=== PATIENT | female | born 1985 | race African-American/Black ===

== ENCOUNTER 2024-09-30 17:20 | Emergency (ER) | payer OTHER, SELFPAY ==
[2024-09-30 17:22] VITALS: BP 187/101
[2024-09-30 17:44] LABS: % Basophils 0.8 % (0-2); % Eosinophils 2.1 % (0-6); % Immature Granulocytes 0.2 % (0-0.5); % Lymphocytes 39.1 % (20.5-51.1); % Monocytes 8.1 % (1.7-9.3); % Neutrophils 49.7 % (42.2-75.2); Absolute Basophils 0.1 10^3/uL (0-0.2); Absolute Eosinophils 0.2 10^3/uL (0-0.7); Absolute Lymphocytes 3.5 10^3/uL (1.2-3.4); Absolute Monocytes 0.7 10^3/uL (0.1-0.6); Absolute Neutrophils 4.5 10^3/uL (1.4-6.5); Hematocrit 33.4 % (37.0-47.0); Hemoglobin 11.5 g/dL (12.0-16.0); Mean Corp Hgb Conc. 34.4 g/dL (33.0-37.0); Mean Corpuscular Hgb 27.8 pg (27.0-31.0); Mean Corpuscular Volume 80.7 fL (81.0-99.0); Mean Platelet Volume 11.4 fL (7.4-10.4); Nucleated Red Blood Cells % 0 %; Platelet Count 217 10^3/uL (130-400); Red Blood Cell Count 4.14 10^6/uL (4.20-5.40); Red Cell Dist. Width 15.4 % (11.5-14.5); White Blood Cell Count 9.1 10^3/uL (4.8-10.8)
[2024-09-30 17:57] LABS: ALT (SGPT) 12 U/L (0-35); AST (SGOT) 15 U/L (14-36); Albumin 4.4 g/dl (3.5-5.0); Alkaline Phosphatase 54 U/L (38-126); Blood Urea Nitrogen 5 mg/dl (7-17); Calcium 9.2 mg/dl (8.4-10.2); Carbon Dioxide 24 mmol/L (22-30); Chloride 102 mmol/L (98-107); Glucose 91 mg/dl (70-99); Potassium 3.6 mmol/L (3.5-5.1); Sodium 137 mmol/L (135-145); Total Bilirubin 0.5 mg/dl (0.2-1.3); Total Protein 7.1 g/dl (6.3-8.2); eGFR > 60.00
[2024-09-30 18:02] LABS: Urine Albumin Trace (Neg - Trace); Urine Bilirubin Negative (Negative); Urine Character Clear (Clear); Urine Color Yellow; Urine Glucose Negative (Negative); Urine Ketone Negative (Negative); Urine Leukocyte 1+ (Negative); Urine Nitrite Negative (Negative); Urine Occult Blood Negative (Negative); Urine Urobilinogen 1+ (Neg - 1+)
[2024-09-30 18:10] LABS: Urine Mucus Many
[2024-09-30 18:11] LABS: Urine Bacteria Many (Negative); Urine Red Blood Cell 0-2 /HPF (0-2)
[2024-09-30 19:05] VITALS: BP 161/91
--- NOTE | 2024-09-30 20:17 | ED.GENMED ---
Addendum entered and electronically signed by YUSUF Swenson 10/03/24 07:24:
Patient's urine found to be positive for Citrobacter species. Patient also . I did speak with patient at home she complains of mild discomfort with urination no fevers no nausea vomiting. She is supposed see her family doctor/[employer]. Will
send a prescription for Keflex 500 mg twice daily the patient [facility] pharmacy in [place]. Discussed close outpatient follow-up and to return if any worsening of symptoms.
Addendum entered and electronically signed by Negrita Harris PA-C 10/02/24 13:35:
Patient called and updated on culture results. Antibiotics sent to the pharmacy. Return precautions discussed.
Original Note:
History of Present Illness
General
Chief Complaint: Blood Pressure Problem
Source: patient
Exam Limitations: none
Time Seen by Provider: 09/30/24 19:01
Nursing documentation reviewed up to this point in time: agreed with
History of Present Illness
History of Present Illness:
39 yo female w hx seizures on Keppra, Hypothyroid on Synthroid and takes them both as ordered. She was taking HCTZ 25 mg up until 2 weeks ago when she ran out. She gotHCTZ from her doctor in [facility] who she says retired and she is in process of moving
her doctor to this area but has no PCP or OB yet.
She has no abdominal pain, no vaginal bleeding or discharge. Want to know how far along she is. She states her periods are irregular and she's been having them intermittently, not sure when last.
She denies H/A, CP, n/v. She felt 'palpitations' last night so took her BP at home and states the top number was 200/
had Ectopic x2 and 3 abortions.
Past History
Past History
ED Past Medical History: Other (Seizure disorder, hypertension, anxiety, PTSD) and Other
ED Past Surgical History: None; Negative Orthopedic
Social History
Tobacco: Smoker
Alcohol: None
Drug: None
Personal: Other (Noncontributory)
Living: with family
Employment: Employed
Family History
Family History: Other (Noncontributory)
Review of Systems
Review of Systems
Allergies reviewed?: Yes
All Other Systems: ROS reviewed and negative except as documented in HPI and ROS
Constitutional: Denies fever
Respiratory: Denies trouble breathing
Cardiac: Denies chest pain
ABD/GI: Denies abdominal pain, nausea, vomiting or diarrhea
: Denies dysuria, frequency, difficulty voiding, urgency, bleeding or discharge
Musculoskeletal: Reports no symptoms
Skin: Reports no symptoms
Neurological: Reports no symptoms
Phy Exam
Physical Exam
Physical Exam:
GENERAL: No acute distress. A&Ox3.
CONSTITUTIONAL: Afebrile.
EYES: clear, conjunctivae normal
ENMT: moist mucus membranes
RESPIRATORY: Regular respirations, nonlabored, lungs clear.
CARDIOVASCULAR: Regular rate and rhythm, no murmurs, no rubs.
GI: Soft, nontender, normal BS, rotund
MUSCULOSKELETAL: Moves with ease. Well perfused.
SKIN: Warm, dry, normal
PSYCH: Normal mood and affect. Well kept, interactive and appropriate
NEUROLOGIC: Awake, alert and oriented. No focal neurological deficits
Course
Orders/Labs/Results
Orders:
Orders
09/30/24 17:37
CBC/With Diff [Complete Blood Count/With Diff] Urgent
Comprehensive Metabolic Panel Urgent
HCG, Beta Quantitative [Beta HCG Quantitative] Urgent
Is this a screen?: No
Urinalysis Reflex To Culture Urgent
Date Specimen was Collected: 09/30/24
Time Specimen was Collected: 17:27
Urine Microscopic Reflex Cult Urgent
Urine Culture Urgent
LENNY Source: U
Specimen Description:
Date Specimen was Collected: 09/30/24
Time Specimen was Collected: 17:27
09/30/24 20:14
Hydrochlorothiazide [Oretic] 25 mg PO NOW STA
09/30/24 20:16
US Limited Urgent
Comment:
Reason For Exam: pt w HTN, seizure, doesn't know how far
09/30/24 20:40
Acetaminophen [Tylenol] 650 mg PO NOW STA
09/30/24 21:32
Clonazepam [Klonopin] 1 mg PO NOW STA
09/30/24 21:39
Quetiapine Fumarate [Seroquel] 300 mg PO NOW STA
Abnormal Lab Results
09/30/24
17:37
RBC 4.14 L 10^6/uL
(4.20-5.40)
Hgb 11.5 L g/dL
(12.0-16.0)
Hct 33.4 L %
(37.0-47.0)
MCV 80.7 L fL
(81.0-99.0)
RDW 15.4 H %
(11.5-14.5)
MPV 11.4 H fL
(7.4-10.4)
Absolute Lymphs (auto) 3.5 H 10^3/uL
(1.2-3.4)
Absolute Monos (auto) 0.7 H 10^3/uL
(0.1-0.6)
BUN 5 L mg/dl
(7-17)
Leukocyte Esterase Rfl 1+ A
(Negative)
Urine Bacteria (Reflex) Many A
(Negative)
09/30/24 17:37
09/30/24 17:37
Vital Signs
Initial and Last Documented VS:
Initial Vital Signs
Temp Pulse Resp BP Pulse Ox
98 F 85 16 187/101 98
09/30/24 17:22 09/30/24 17:22 09/30/24 17:22 09/30/24 17:22 09/30/24 17:22
Last Documented Vital Signs
Temp Pulse Resp BP Pulse Ox
98 F 81 18 161/91 99
09/30/24 17:22 09/30/24 20:35 09/30/24 19:05 09/30/24 20:35 09/30/24 19:05
MDM/Problems Addressed
MDM/Problems Addressed:
39 yo female w hx seizures on Keppra, Hypothyroid on Synthroid and takes them both as ordered. She was taking HCTZ 25 mg up until 2 weeks ago when she ran out. She gotHCTZ from her doctor in [facility] who she says retired and she is in process of moving
her doctor to this area but has no PCP or OB yet.
She has no abdominal pain, no vaginal bleeding or discharge. Want to know how far along she is. She states her periods are irregular and she's been having them intermittently, not sure when last.
She denies H/A, CP, n/v. She felt 'palpitations' last night so took her BP at home and states the top number was 200/
had Ectopic x2 and 3 abortions.
CBC with no clinically significant abnormality
CMP normal
hCG 51262.00M IU/mL
Patient is requesting an ultrasound to see how far along she is as she does not want to keep the baby
9:30 PM:
Patient is asking who can provide her with her p.m. medications of clonazepam 1 mg and Seroquel 300 mg this was done.
Patient is requesting Tylenol for headache. This was given
Patient is requesting a meal. This was given
11:20 p.m.
US: Radiology report read: IMPRESSION:
Single, viable intrauterine with estimated gestational age of 7 weeks 6 days. heart rate: 155 bpm.
3.3 cm cyst within the left ovary.
Copy of report given to patient
Pt is stable for discharge
BP normalized 126/64
Referred to [facility]
*Critical Care Note
Total Time (30-74mins, 75-104mins- exclusive of procedures): Not Applicable
ED Attending Note
-
Portions of this chart may have been created with voice recognition software.� Occasional wrong word or��sound alike� substitutions may have occurred due to the inherent limitations of voice recognition software.
Discharge Plan
Departure
Patient Disposition: Home (Routine Discharge)
Date of Disposition: 09/30/24
Time of Disposition: 23:27
Patient with high blood pressure during this ER visit?: No
Condition: Good
Discharge Problem:
, High blood pressure
Instructions: High Blood Pressure (DC), - The Second Month
Prescriptions:
New
hydrochlorothiazide 25 mg tablet
25 mg PO DAILY Qty: 30 0RF
No Action
Klonopin:
1 tab PO PRN PRN (Reason: anxiety)
Patient Comments:
08/23/2021: Per PDMP, No Klonopin filled, checked back to 2014.
ibuprofen 600 MG tablet
600 mg PO Q4HPRN PRN (Reason: pain)
levetiracetam 500 MG tablet
500 mg PO BID Qty: 30 0RF
lorazepam 1 MG tablet
1 mg PO Q8HPRN PRN (Reason: anxiety) Qty: 15 0RF
Referrals:
Kamar Delaney MD [Family Provider] -
Scarlet Bassett DO [Active] - Next open appointment
Activity Restrictions/Additional Instructions:
As we discussed, take the blood pressure medication HCTZ daily.
You are 7 weeks 6 days .
I have given you the name of an [facility] doctor to use
Interventions
Interventions:
*Risk Screen - Suicide Last Done: 09/30/24 17:22
*General Assessment Last Done: 09/30/24 17:22
*Neglect/Abuse Screening Last Done: 09/30/24 17:22
*ED COVID-19 Vaccine History Last Done: 09/30/24 18:45
ED- Cardiac Assessment Last Done: 09/30/24 18:45
ED- Neurological Assessment Last Done: 09/30/24 18:45
ED- Pulmonary Assessment Last Done: 09/30/24 18:45
Discharge Date and Time
Print Language: THAI
[2024-09-30] MEDS: ORETIC 25 MG PO (20:35)
[2024-09-30] MEDS: TYLENOL 650 MG PO (20:51)
[2024-09-30] MEDS: KLONOPIN 1 MG PO (21:47)
[2024-09-30] MEDS: SEROQUEL 300 MG PO (21:47)
[2024-09-30 22:58] VITALS: BP 137/72
[2024-09-30 23:00] VITALS: BP 126/74
[2024-09-30 23:57] VITALS: BP 126/71
== END 2024-09-30 23:58 | disposition home or self-care (01) ==
LOC: EMR 17:20
PROVIDERS: Emergency Medicine; EMERGENCY PHYSICIAN Emergency Medicine; FAMILY PHYSICIAN Internal Medicine
DX: O10.911 Unspecified pre-existing hypertension complicating pregnancy, first trimester (principal); O99.351 Diseases of the nervous system complicating pregnancy, first trimester; G40.909 Epilepsy, unspecified, not intractable, without status epilepticus; Z3A.01 Less than 8 weeks gestation of pregnancy; E03.9 Hypothyroidism, unspecified; F41.9 Anxiety disorder, unspecified; F43.10 Post-traumatic stress disorder, unspecified; F17.200 Nicotine dependence, unspecified, uncomplicated; Z79.890 Hormone replacement therapy
CPT/HCPCS: 99284; 76815; 80053; 81003; 81015; 84702; 85025; 87077; 87086; 87186

== ENCOUNTER 2024-11-11 20:02 | Emergency (ER) | payer OTHER, SELFPAY ==
--- NOTE | 2024-11-11 20:03 | ED.GENMED ---
ED Provider Triage
<Zoila Hunt PA-C - Last Filed: 11/11/24 20:12>
-
Patient seen by provider in Triage?: Seen in Triage
Attestation: A medical screening examination has been initiated by a qualified medical provider. Based on the assessment performed at this time, it has been determined that an emergent medical condition may exist and the patient has been informed
that further medical evaluation and possible additional diagnostic testing may be needed.
HPI: 39yoF went to urgent care for high blood pressure after being out of her HCTZ for 1 week. C/o R sided chest pain since yesterday, currently minimal. Hx of medical about 1 month ago at 10 weeks .
GENERAL: Alert , in no apparent distress
EYE: No visual abnormalities.
NECK: Trachea midline
ENT: No visible abnormalities.
LUNGS: No acute respiratory distress
NEUROLOGICAL: Alert and oriented
SKIN: Skin intact. No visible changes.
MUSCULOSKELETAL: Moving extremities normally
PSYCH: Normal and appropriate interaction.
This is a medical evaluation conducted in person to initiate diagnostic evaluation and provide initial therapeutics. Please see further documentation by the treating clinician.
Cardiac labs, HCG, EKG, and CXR ordered.
History of Present Illness
<Zoila Hunt PA-C - Last Filed: 11/11/24 20:12>
General
Chief Complaint: Cardiac Symptoms
Time Seen by Provider: 11/11/24 20:55
<Melvin Chamberlain Jr., PA-C - Last Filed: 11/12/24 00:32>
General
Source: patient and spouse
Exam Limitations: none
Nursing documentation reviewed up to this point in time: agreed with
History of Present Illness
History of Present Illness:
The patient is a 39-year-old female past medical history of anxiety, asthma, seizure disorder presenting to the emergency department today with concerns of chest pain described as achy rating to the right arm also noticed increased blood pressure
does take blood pressure medications no recent changes also recently had an elective 1 month ago did initially have bleeding the bleeding has improved today with worsening chest pain that prompted her to come to the ER. Also noticed leg
swelling mainly to the right leg small amount to the left leg. No ongoing chest pain at rest no shortness of breath at rest no fevers or abdominal pain.
Past History
<Zoila Hunt PA-C - Last Filed: 11/11/24 20:12>
Past History
ED Past Medical History: Other (Seizure disorder, hypertension, anxiety, PTSD) and Other
ED Past Surgical History: None; Negative Orthopedic
Social History
Tobacco: Smoker
Alcohol: None
Drug: None
Personal: Other (Noncontributory)
Living: with family
Employment: Employed
Family History
Family History: Other (Noncontributory)
Review of Systems
<Melvin Chamberlain Jr., PA-C - Last Filed: 11/12/24 00:32>
Review of Systems
Allergies reviewed?: Yes
All Other Systems: ROS reviewed and negative except as documented in HPI and ROS
Phy Exam
<Melvin Chamberlain Jr., PA-C - Last Filed: 11/12/24 00:32>
Physical Exam
Physical Exam:
GENERAL: Alert , in no apparent distress
EYE: pupils equal and reactive
NECK: Supple, no significant adenopathy.
ENT: o/p clr, mmm.
CARDIAC: Regular rate and rhythm .
LUNGS: Clear breath sounds bilaterally, no acute respiratory distress, no wheezes/rales/rhonchi
ABDOMEN: Soft, without focal tenderness, no r/g, no cvat
NEUROLOGICAL: Alert and oriented, no focal neuro deficits
SKIN: Warm and dry, skin intact.
MUSCULOSKELETAL: No edema, well perfused.
PSYCH: Normal and appropriate interaction.
Course
<Zoila Hunt PA-C - Last Filed: 11/11/24 20:12>
Orders/Labs/Results
Orders:
Orders
11/11/24 20:06
Electrocardiogram (*1) Urgent
Reason for Study: Chest Pain
EKG- Treatment ONCE
11/11/24 20:11
CR Chest - 2 Views Urgent
Comment:
Reason For Exam: CP
11/11/24 20:16
Beta HCG Quantitative Urgent
Is this a screen?: No
Complete Blood Count/With Diff Urgent
Comprehensive Metabolic Panel Urgent
Troponin I Urgent
11/11/24 21:19
CT Chest Pe Study Urgent
Comment:
Reason For Exam: CP/SOB, recent bed rest, leg swelling, recent abor
Levetiracetam [Keppra] 500 mg PO NOW STA
11/11/24 21:56
BNP [NT-proBNP] Urgent
11/11/24 22:49
Clonazepam [Klonopin] 1 mg PO NOW STA
Quetiapine Fumarate [Seroquel] 300 mg PO NOW STA
11/11/24 23:32
Add On- LAB Urgent
Tests Added?: tsh free t4
11/11/24 23:35
Hydrochlorothiazide [Oretic] 50 mg PO NOW STA
11/11/24 23:36
Methimazole [Tapazole] 5 mg PO NOW STA
Propranolol [Inderal] 20 mg PO NOW STA
Abnormal Lab Results
11/11/24
20:16
RBC 3.55 L 10^6/uL
(4.20-5.40)
Hgb 9.8 L g/dL
(12.0-16.0)
Hct 31.0 L %
(37.0-47.0)
MCHC 31.6 L g/dL
(33.0-37.0)
RDW 15.5 H %
(11.5-14.5)
MPV 10.9 H fL
(7.4-10.4)
Eosinophils % 6.1 H %
(0-6)
Glucose 106 H mg/dl
(70-99)
Calcium 8.1 L mg/dl
(8.4-10.2)
Total Protein 6.2 L g/dl
(6.3-8.2)
11/11/24 20:16
11/11/24 20:16
Vital Signs
Initial and Last Documented VS:
Initial Vital Signs
Temp Pulse Resp BP Pulse Ox
98.1 F 60 16 187/103 98
11/11/24 20:05 11/11/24 20:05 11/11/24 20:05 11/11/24 20:05 11/11/24 20:05
Last Documented Vital Signs
Temp Pulse Resp BP Pulse Ox
98.1 F 82 24 135/82 99
11/11/24 20:05 11/12/24 00:03 11/12/24 00:03 11/12/24 00:03 11/12/24 00:03
<Melvin Chamberlain Jr., FRANCIS - Last Filed: 11/12/24 00:32>
Orders/Labs/Results
Orders:
Orders
11/11/24 20:06
Electrocardiogram (*1) Urgent
Reason for Study: Chest Pain
EKG- Treatment ONCE
11/11/24 20:11
CR Chest - 2 Views Urgent
Comment:
Reason For Exam: CP
11/11/24 20:16
Beta HCG Quantitative Urgent
Is this a screen?: No
Complete Blood Count/With Diff Urgent
Comprehensive Metabolic Panel Urgent
Troponin I Urgent
11/11/24 21:19
CT Chest Pe Study Urgent
Comment:
Reason For Exam: CP/SOB, recent bed rest, leg swelling, recent abor
Levetiracetam [Keppra] 500 mg PO NOW STA
11/11/24 21:56
BNP [NT-proBNP] Urgent
11/11/24 22:49
Clonazepam [Klonopin] 1 mg PO NOW STA
Quetiapine Fumarate [Seroquel] 300 mg PO NOW STA
11/11/24 23:32
Add On- LAB Urgent
Tests Added?: tsh free t4
11/11/24 23:35
Hydrochlorothiazide [Oretic] 50 mg PO NOW STA
11/11/24 23:36
Methimazole [Tapazole] 5 mg PO NOW STA
Propranolol [Inderal] 20 mg PO NOW STA
Abnormal Lab Results
11/11/24
20:16
RBC 3.55 L 10^6/uL
(4.20-5.40)
Hgb 9.8 L g/dL
(12.0-16.0)
Hct 31.0 L %
(37.0-47.0)
MCHC 31.6 L g/dL
(33.0-37.0)
RDW 15.5 H %
(11.5-14.5)
MPV 10.9 H fL
(7.4-10.4)
Eosinophils % 6.1 H %
(0-6)
Glucose 106 H mg/dl
(70-99)
Calcium 8.1 L mg/dl
(8.4-10.2)
Total Protein 6.2 L g/dl
(6.3-8.2)
11/11/24 20:16
11/11/24 20:16
Vital Signs
Initial and Last Documented VS:
Initial Vital Signs
Temp Pulse Resp BP Pulse Ox
98.1 F 60 16 187/103 98
11/11/24 20:05 11/11/24 20:05 11/11/24 20:05 11/11/24 20:05 11/11/24 20:05
Last Documented Vital Signs
Temp Pulse Resp BP Pulse Ox
98.1 F 82 24 135/82 99
11/11/24 20:05 11/12/24 00:03 11/12/24 00:03 11/12/24 00:03 11/12/24 00:03
<Melvin Chamberlain Jr., PA-C - Last Filed: 11/12/24 00:32>
MDM/Problems Addressed
MDM/Problems Addressed:
39-year-old female presenting to the emergency department today with concerns of elevated blood pressure chest pain intermittently today described as sharp and achy some radiation to the arm. On arrival here blood pressure is elevated otherwise
vital signs are normal. Labs showing anemia hemoglobin 9.8. She did have recent bleeding with medical when she was roughly 10 weeks bleeding was initially somewhat heavy a month ago but has been decreasing and is very minimal at
this point. No abdominal pain. Patient's quantitative hCG was 47. The case was discussed with OB they recommend close outpatient follow-up for this concern no abdominal pain no significant bleeding at this time. Patient was notified to do this
with short-term follow-up. Otherwise here BNP was elevated to 1000 no baseline levels. Troponin negative EKG nonischemic chest x-ray without acute abnormalities CT scan was then obtained considering the patient had shortness of breath and new leg
swelling she was considered moderate risk for PE. CT scan did not show a PE incidental findings of nodules mediastinal lymph nodes and thyroid gland issues were discussed with the patient will follow-up closely as an outpatient. This point patient
in no distress was given her home medications with blood pressure improved she was advised for close cardiac follow-up with new leg swelling shortness of breath. Otherwise a follow-up with a primary care doctor for additional testing of incidental
findings will also follow-up closely with her leaf sorter.
<Melvin Chamberlain Jr., PA-C - Last Filed: 11/12/24 00:32>
*Critical Care Note
Total Time (30-74mins, 75-104mins- exclusive of procedures): Not Applicable
ED Attending Note
<Zoila Hunt PA-C - Last Filed: 11/11/24 20:12>
-
Portions of this chart may have been created with voice recognition software.� Occasional wrong word or��sound alike� substitutions may have occurred due to the inherent limitations of voice recognition software.
Discharge Plan
Departure
Patient Disposition: Home (Routine Discharge)
Date of Disposition: 11/12/24
Time of Disposition: 00:30
Patient with high blood pressure during this ER visit?: No
Condition: Good
Covid-19: Not Applicable
Discharge Problem:
Vaginal bleeding, Chest pain, Edema, peripheral, Anemia, Pulmonary nodule, Enlarged thyroid gland
Instructions: *CBC Heart Failure Instructions
Prescriptions:
No Action
clonazepam 1 mg Tablet
1 mg PO HSPRN PRN (Reason: anxiety)
Patient Comments:
11/11/24: last filled 11/02/24 for 30 tabs over 30 days
levetiracetam 500 MG tablet
500 mg PO BID Qty: 30 0RF
quetiapine [Seroquel] 300 mg Tablet
300 mg PO HS
ibuprofen 800 mg Tablet
800 mg PO DAILYPRN PRN (Reason: mild pain)
quetiapine [Seroquel] 100 mg Tablet
100 mg PO BID
methimazole 5 mg Tablet
5 mg PO BID
propranolol 20 mg Tablet
20 mg PO TID
desvenlafaxine 50 mg tablet extended release 24 hr
50 mg PO DAILY
hydrochlorothiazide 25 mg tablet
25 mg PO BID
Referrals:
Kamar Delaney MD [Family Provider] -
Activity Restrictions/Additional Instructions:
You came to the emergency department today with chest pain. Here you are found to have multiple incidental findings on your CT scan. Please help closely with the primary care doctor for this. Additionally you had a slightly elevated quantitative
hCG please follow closely with your outpatient guest relation officer within 1 week to be reassessed for this. Otherwise she did have some leg swelling and some chest discomfort please follow closely with cardiology for further assessment of this. Return to
the emergency department for any worsening, new or concerning symptoms.
Interventions
Interventions:
*Risk Screen - Suicide Last Done: 11/11/24 20:05
*General Assessment Last Done: 11/11/24 20:05
*Neglect/Abuse Screening Last Done: 11/11/24 20:05
ED- Fall Risk Assessment Last Done: 11/11/24 23:22
*ED COVID-19 Vaccine History Last Done: 11/11/24 20:05
ED- Cardiac Assessment Last Done: 11/11/24 23:22
ED- Pulmonary Assessment Last Done: 11/11/24 23:22
Discharge Date and Time
Print Language: PAKISTANI
[2024-11-11 20:05] VITALS: BP 187/103
[2024-11-11 20:40] LABS: ALT (SGPT) 12 U/L (0-35); AST (SGOT) 21 U/L (14-36); Albumin 3.6 g/dl (3.5-5.0); Alkaline Phosphatase 65 U/L (38-126); Blood Urea Nitrogen 7 mg/dl (7-17); Calcium 8.1 mg/dl (8.4-10.2); Carbon Dioxide 28 mmol/L (22-30); Chloride 106 mmol/L (98-107); Glucose 106 mg/dl (70-99); Potassium 4.3 mmol/L (3.5-5.1); Sodium 138 mmol/L (135-145); Total Bilirubin 0.3 mg/dl (0.2-1.3); Total Protein 6.2 g/dl (6.3-8.2); eGFR > 60.00
[2024-11-11 20:47] LABS: % Basophils 0.5 % (0-2); % Eosinophils 6.1 % (0-6); % Immature Granulocytes 0.1 % (0-0.5); % Monocytes 6.8 % (1.7-9.3); % Neutrophils 62.5 % (42.2-75.2); Absolute Eosinophils 0.5 10^3/uL (0-0.7); Absolute Lymphocytes 1.9 10^3/uL (1.2-3.4); Absolute Monocytes 0.5 10^3/uL (0.1-0.6); Absolute Neutrophils 4.8 10^3/uL (1.4-6.5); Hemoglobin 9.8 g/dL (12.0-16.0); Mean Corp Hgb Conc. 31.6 g/dL (33.0-37.0); Mean Corpuscular Hgb 27.6 pg (27.0-31.0); Mean Corpuscular Volume 87.3 fL (81.0-99.0); Mean Platelet Volume 10.9 fL (7.4-10.4); Nucleated Red Blood Cells % 0 %; Platelet Count 219 10^3/uL (130-400); Red Blood Cell Count 3.55 10^6/uL (4.20-5.40); Red Cell Dist. Width 15.5 % (11.5-14.5); White Blood Cell Count 7.8 10^3/uL (4.8-10.8)
[2024-11-11 20:48] LABS: Troponin I < 0.012 ng/ml
[2024-11-11 20:56] LABS: Beta HCG Quantitative 47.88 mIU/ml
[2024-11-11] MEDS: KEPPRA 500 MG PO (21:36)
[2024-11-11 22:26] LABS: NT-proBNP 1210 pg/ml
[2024-11-11 23:11] VITALS: BP 168/107
[2024-11-11] MEDS: KLONOPIN 1 MG PO (23:18)
[2024-11-11] MEDS: SEROQUEL 300 MG PO (23:18)
[2024-11-11 23:20] VITALS: BMI 34.6
[2024-11-11] MEDS: ORETIC 50 MG PO (23:58)
[2024-11-11] MEDS: INDERAL 20 MG PO (23:58)
[2024-11-11] MEDS: TAPAZOLE 5 MG PO (23:59)
[2024-11-12 00:03] VITALS: BP 135/82
== END 2024-11-12 01:03 | disposition home or self-care (01) ==
LOC: EMR 20:02
PROVIDERS: Physician Assistant; EMERGENCY PHYSICIAN Student in an Organized Health Care Education/Training Program; FAMILY PHYSICIAN Internal Medicine
DX: N93.9 Abnormal uterine and vaginal bleeding, unspecified (principal); R07.9 Chest pain, unspecified; R60.0 Localized edema; D64.9 Anemia, unspecified; E04.9 Nontoxic goiter, unspecified; G40.909 Epilepsy, unspecified, not intractable, without status epilepticus; R91.1 Solitary pulmonary nodule; F17.200 Nicotine dependence, unspecified, uncomplicated; I10 Essential (primary) hypertension
CPT/HCPCS: 99285; 71046; 71275; 80053; 83880; 84484; 84702; 85025; 93005; Q9967

== ENCOUNTER 2025-05-11 23:49 | Emergency (ER) | payer OTHER, SELFPAY ==
[2025-05-11 23:56] VITALS: BP 206/126; BMI 31.0
--- NOTE | 2025-05-12 00:50 | ED.GENMED ---
History of Present Illness
General
Chief Complaint: Foreign Body Ingestion
Source: patient
Exam Limitations: none
Time Seen by Provider: 05/12/25 00:21
Nursing documentation reviewed up to this point in time: agreed with
History of Present Illness
History of Present Illness:
Note:
CHIEF COMPLAINT(S)
Numbness of lips and erratic heartbeats after potential exposure to unknown substances.
HISTORY OF PRESENT ILLNESS
The patient is a 39-year-old female who presents to the emergency department with concerns about numbness of the lips and erratically beating heart. She reports these symptoms occurred immediately after smoking marijuana and drinking from a cup at a
social gathering. The symptoms began last night and recurred tonight. The patient never experienced numbness or irregular heartbeat associated with this particular batch of marijuana until these past two evenings, despite smoking it throughout the
week. The patient brought the marijuana and drinks with her to be tested for potential contamination, but acknowledges that the medical facility does not have the capability to test these items for adulteration. She denies other drug use but
confirms tobacco use and no alcohol consumption. There has been a recent change in her mental health medication, with an increase in her olanzapine dosage to 0.5 mg.
CHRONIC MEDICAL CONDITIONS SIGNIFICANTLY AFFECTING CARE
- Mental health
- Thyroid disorder under treatment.
SOCIAL HISTORY
- Tobacco smoker.
Marijuana use on a daily basis
REVIEW OF SYSTEMS
- Cardiovascular: Reports erratic heartbeat coinciding with exposure to suspected contaminated substances.
- Neurological: Numbness of lips experienced following exposure to suspected contaminated substances.
PHYSICAL EXAM
- Cardiovascular: Heart sounds are normal.
(Nursing notes reviewed and vital signs reviewed.)
Nursing notes reviewed and agree with documentation. Allergy list reviewed and noted.
PHYSICAL EXAMINATION:
GENERAL APPEARANCE: The patient is alert, oriented to person, place, and time, in no acute distress.
VITAL SIGNS: Reviewed and agree with documentation
HENT: Head is normocephalic and atraumatic. The sinuses are nontender. The nares are patent. Oropharynx is clear
EYES: Pupils are equal and reactive to light and accommodation. Extraocular muscles intact. Conjunctiva normal, Sclera normal. Eyelids normal to inspection
NECK: Supple without lymphadenopathy. Trachea is midline. Normal range of motion
CARDIOVASCULAR: Regular rate and rhythm. Heart sounds normal
RESPIRATORY/CHEST: No respiratory distress noted. Clear to auscultation, bilaterally, no crackles, rales or wheezes are heard. Equal chest expansion
ABDOMEN: Soft, nontender, nondistended with good bowel sounds heard.
BACK: Normal inspection, no CVA tenderness.
UPPER EXTREMITIES: Range of motion normal, Motor strength normal, no cyanosis, no edema.
LOWER EXTREMITIES: Normal range of motion, Motor strength normal, no cyanosis, no edema.
NEUROLOGICAL: Gross nonfocal. Speech normal, GCS 15, No obvious cerebellar deficits noted. Memory is intact. Cranial nerves intact to screening exam
SKIN: Warm and dry, no rash or lesion, no discoloration, skin intact.
PSYCH: Normal and appropriate interaction. Normal affect
PROBLEM LIST
- Acute: Numbness of lips, erratic heartbeat after substance exposure.
- Chronic: Mental health disorder, thyroid disorder.
PLAN
- Conduct an Electrocardiogram (ECG).
- Perform basic blood work, including a urine test.
- Evaluate thyroid function as part of the diagnostic workup.
DIFFERENTIAL DIAGNOSIS
The Differential Diagnosis includes, in no particular order and is not limited to:
1. Substance-induced cardiac arrhythmia
2. Allergic reaction to ingested substances
3. Anxiety-induced symptoms
4. Thyrotoxicosis
5. Adulterated marijuana
6. Stimulant ingestion
7. Cardiomyopathy
8. Medication side effect
9. Panic attack
10. Metabolic disturbance
CARE-UPDATE
05/12/25 - 00:51
Patient expressed a strong desire to leave the emergency department and return home to be with her family. She removed the EKG leads and exited the ER without completing her evaluation or receiving any lab work. I was informed of her departure
post-factum.
Disposition:
SUMMARY OF ENCOUNTER
The patient, a 39-year-old female, visited the emergency department with concerns of possible poisoning after experiencing numbness and tingling in her lips post smoking marijuana. She reports daily use of marijuana. Full testing, including an ECG
and blood work, was ordered due to her symptoms, including an erratic heartbeat. However, she decided to leave the emergency department after consulting with her and eloped before any further communication or evaluation could occur.
DISPOSITION
Eloped
PLAN
Testing, including an ECG and blood work, was initiated to assess her symptoms and differentiate potential causes, such as substance-induced arrhythmia or an allergic reaction.
MEDICATION RECONCILIATION
The patient is noted to have been using olanzapine for mental health management, with a recent increase in dosage.
SMOKING CESSATION COUNSELING
The patient smokes cannabis and was advised about the significant health risks associated with smoking, including cancer, lung disease, heart disease, stroke, and more. Suggestions were made to consider cessation methods such as nicotine patches or
gum and to discuss prescription options with her primary care provider.
MEDICAL DECISION MAKING
Number and Complexity of Problems Addressed: The patient presented with acute symptoms potentially related to substance exposure, as well as ongoing issues related to mental health and thyroid disorder.
Data: Full testing was initiated but due to the patients elopement, results were not obtained or analyzed for this visit.
Risk: The patients care plan was impacted by the potential of substance misuse and the inability to complete testing, emphasizing the need for hospitalization or further evaluation. The patients decision to leave the facility post consultation with
her limited the medical evaluation and presented a risk to her health management.
Past History
Past History
ED Past Medical History: Other (Seizure disorder, hypertension, anxiety, PTSD) and Other
ED Past Surgical History: None; Negative Orthopedic
Social History
Tobacco: Smoker
Alcohol: None
Drug: None
Personal: Other (Noncontributory)
Living: with family
Employment: Employed
Family History
Family History: Other (Noncontributory)
Review of Systems
Review of Systems
Allergies reviewed?: Yes
All Other Systems: ROS reviewed and negative except as documented in HPI and ROS
Constitutional: Reports no symptoms
EENT: Reports no symptoms
Respiratory: Reports no symptoms
Cardiac: Reports no symptoms
ABD/GI: Reports no symptoms
: Reports no symptoms
Musculoskeletal: Reports no symptoms
Skin: Reports no symptoms
Neurological: Reports no symptoms
Endocrine: Reports no symptoms
Hematologic/Lymphatic: Reports no symptoms
Psychiatric: Reports no symptoms
Phy Exam
Physical Exam
Physical Exam:
.
Course
Orders/Labs/Results
Orders:
Orders
05/12/25 00:24
Acetaminophen Urgent
Alcohol Urgent
Complete Blood Count/With Diff Urgent
Comprehensive Metabolic Panel Urgent
HCG, Serum Qualitative Screen Urgent
PTT Urgent
Prothrombin Time Urgent
Salicylate Urgent
TSH Reflex To Free T4 Urgent
0.9% Sodium Chloride 1000 ml [Nss] 1,000 ml IV BOLUS
05/12/25 00:25
Test Result ONCE
Vital Signs
Initial and Last Documented VS:
Initial Vital Signs
Temp Pulse Resp BP Pulse Ox
98.6 F 88 16 206/126 100
05/11/25 23:56 05/11/25 23:56 05/11/25 23:56 05/11/25 23:56 05/11/25 23:56
Last Documented Vital Signs
Temp Pulse Resp BP Pulse Ox
98.6 F 88 16 206/126 100
05/11/25 23:56 05/11/25 23:56 05/11/25 23:56 05/11/25 23:56 05/11/25 23:56
*Pulse Oximetry
Patient hypoxic: no (100% on room air)
*Critical Care Note
Total Time (30-74mins, 75-104mins- exclusive of procedures): Not Applicable
ED Attending Note
-
Portions of this chart may have been created with voice recognition software.� Occasional wrong word or��sound alike� substitutions may have occurred due to the inherent limitations of voice recognition software.
Discharge Plan
Departure
Patient Disposition: Elopement
Patient with high blood pressure during this ER visit?: Yes
Condition: Good
Discharge Problem:
Marijuana use
Instructions: Cannabis use disorder, BLOOD PRESSURE
Prescriptions:
No Action
clonazepam 1 mg Tablet
1 mg PO HSPRN PRN (Reason: anxiety)
Patient Comments:
11/11/24: last filled 11/02/24 for 30 tabs over 30 days
levetiracetam 500 MG tablet
500 mg PO BID Qty: 30 0RF
quetiapine [Seroquel] 300 mg Tablet
300 mg PO HS
ibuprofen 800 mg Tablet
800 mg PO DAILYPRN PRN (Reason: mild pain)
quetiapine [Seroquel] 100 mg Tablet
100 mg PO BID
methimazole 5 mg Tablet
5 mg PO BID
propranolol 20 mg Tablet
20 mg PO TID
desvenlafaxine 50 mg tablet extended release 24 hr
50 mg PO DAILY
hydrochlorothiazide 25 mg tablet
25 mg PO BID
Referrals:
UNKNOWN - PT DOES,NOT KNOW [Family Provider]
Interventions
Interventions:
*Risk Screen - Suicide Last Done: 05/11/25 23:56
*General Assessment Last Done: 05/11/25 23:56
*Neglect/Abuse Screening Last Done: 05/11/25 23:56
*ED- Fall Risk Assessment Last Done: 05/11/25 23:56
*ED COVID-19 Vaccine History Last Done: 05/11/25 23:56
*Nursing Disposition Last Done: 05/12/25 00:33
DW-Bkvzcm-Dvqybbjjvr Assessment Last Done: 05/12/25 00:25
ED- Pulmonary Assessment Last Done: 05/12/25 00:25
ED-EENT Assessment Last Done: 05/12/25 00:25
Discharge Date and Time
Discharge Date/Time: 05/12/25 00:34
Print Language: INDONESIAN
== END 2025-05-12 00:34 | disposition left against medical advice (07) ==
LOC: EMR 23:49
PROVIDERS: EMERGENCY PHYSICIAN Student in an Organized Health Care Education/Training Program
DX: F12.90 Cannabis use, unspecified, uncomplicated (principal); I10 Essential (primary) hypertension; E07.9 Disorder of thyroid, unspecified; G40.909 Epilepsy, unspecified, not intractable, without status epilepticus; F41.9 Anxiety disorder, unspecified; F17.200 Nicotine dependence, unspecified, uncomplicated; Z53.29 Procedure and treatment not carried out because of patient's decision for other reasons
CPT/HCPCS: 99283; 93005

== ENCOUNTER 2025-05-12 03:49 | Emergency (ER) | payer OTHER, SELFPAY ==
[2025-05-12 03:59] VITALS: BP 184/123
--- NOTE | 2025-05-12 05:52 | ED.GENMED ---
History of Present Illness
General
Chief Complaint: Heart Rate Problem
Source: patient
Time Seen by Provider: 05/12/25 04:09
Nursing documentation reviewed up to this point in time: agreed with
History of Present Illness
History of Present Illness:
Note:
CHIEF COMPLAINT(S)
Tingling in lips and sensation of rapid heartbeat.
HISTORY OF PRESENT ILLNESS
The patient is a 39-year-old female who presented to the emergency department with complaints of tingling in her lips and a sensation of her heart beating rapidly. She experienced similar symptoms earlier in the day and left the emergency department
at that time wanting to see her children. After leaving, she spoke with someone on the phone and the symptoms recurred, prompting her return to the emergency department. On examination, the patients heart rate appeared normal and her lungs were
clear. She reported that the sensation did not improve with drinking liquids. She denied smoking marijuana after originally leaving the emergency department or consuming any alcohol.
SOCIAL HISTORY
The patient reported smoking marijuana at a house democrat prior to the onset of her symptoms.
PHYSICAL EXAM
- Heart: Normal heart rate on examination.
- Lungs: Clear.
Nursing notes reviewed and vital signs reviewed.
PROBLEM LIST
Acute:
- Tingling in lips.
- Sensation of rapid heartbeat.
PLAN
1. Perform an electrocardiogram to assess cardiac rhythm.
2. Provide oral fluids for hydration.
3. Monitor symptoms and reassess if necessary.
DIFFERENTIAL DIAGNOSIS
The Differential Diagnosis includes, in no particular order and is not limited to:
1. Anxiety or panic attack.
2. Hyperventilation syndrome.
3. Palpitations secondary to stimulant use
Disposition:
SUMMARY OF ENCOUNTER
The patient is a 39-year-old female who presented to the emergency department with tingling in the lips and a sensation of rapid heartbeat. Her symptoms earlier prompted a previous visit to the emergency department, which she left to see her
children. After reexperiencing symptoms, she returned for evaluation. Examination revealed normal heart rate and clear lungs. During this visit, the electrocardiogram findings were discussed, and the patient reported no return of symptoms and
expressed a desire to be discharged.
DISPOSITION
The patient left the emergency department on her own without completing discharge paperwork.
PLAN
1. Perform an electrocardiogram to assess cardiac rhythm.
2. Provide oral fluids for hydration.
3. Monitor symptoms and reassess if necessary.
SMOKING CESSATION COUNSELING
The patient smokes cannabis; I counseled them on cessation and informed them that smoking and/or the use of nicotine-containing products pose a significant health risk and can cause many serious health ailments, such as cancer, lung disease, heart
disease, stroke, diabetes, hypertension, and premature . I encouraged them to consider cold-turkey cessation, or nicotine patches/gum to curb their cravings initially, and to discuss other potential prescription medication options with their
PCP in follow-up to todays ED visit. I encouraged them to pick a quit date and to try to stick to it. I informed them that quitting is the most important thing they can do to improve their health now and in the future.
MEDICAL DECISION MAKING
Number and Complexity of Problems Addressed:
The patient presented with acute concerns of tingling lips and sensation of rapid heartbeat. These could be associated with various potential diagnoses, including cardiac or non-cardiac origins, necessitating thorough evaluation and management.
Data: The patients symptoms and physical examination prompted an electrocardiogram. Her decision to leave before completing discharge adversely impacted comprehensive symptom management.
Risk: The patients care was potentially complicated by her use of cannabis and her decision to leave the department against medical advice. The necessity for continued monitoring and reassessment was considered in light of her symptoms and potential
differential diagnoses. Social determinants such as polysubstance use were also considered in her management plan.
Past History
Past History
ED Past Medical History: Other (Seizure disorder, hypertension, anxiety, PTSD) and Other
ED Past Surgical History: None; Negative Orthopedic
Social History
Tobacco: Smoker
Alcohol: None
Drug: None
Personal: Other (Noncontributory)
Living: with family
Employment: Employed
Family History
Family History: Other (Noncontributory)
Phy Exam
Physical Exam
Physical Exam:
.
General Physical Exam
General Presentation: well appearing and no apparent distress
General Skin: warm and dry
General Habitus: normal
General Mental: alert
General Hydration: appears well hydrated
ENT Exam
ENT Exam: EOMI, pharynx normal, neck supple and normocephalic
Eye Exam
Eye Exam: PERRL, cornea clear and conjunctiva normal
Cardiovascular Exam
Cardiovascular Exam: regular rate/rhythm, no edema, no murmur and normal peripheral pulses
Pulmonary Exam
Pulmonary Exam: lungs clear, no respiratory distress, no rales, no crackles, no rhonchi, no stridor, no wheezing and no cough
Gastrointestinal Exam
Gastrointestinal Exam: normal bowel sounds, non tender, soft, no organomegaly, no pulsatile mass and non distended
Neurological Exam
Neurological Exam: alert, oriented x3, no motor deficits and speech normal
Musculoskeletal Exam
Musculoskeletal Exam: full ROM and no edema
Skin Exam
Skin Exam: normal color, warm/dry, no rash and no petechia
Psychiatric Exam
Psychiatric Exam: normal mood/affect
Course
Orders/Labs/Results
Orders:
Orders
05/12/25 04:04
EKG [Electrocardiogram (*1)] Urgent
Reason for Study: Palpitations
EKG- Treatment ONCE
Vital Signs
Initial and Last Documented VS:
Initial Vital Signs
Temp Pulse Resp Pulse Ox
98.9 F 89 16 100
05/12/25 03:54 05/12/25 03:54 05/12/25 03:54 05/12/25 03:54
Last Documented Vital Signs
Temp Pulse Resp BP Pulse Ox
98.9 F 89 16 184/123 100
05/12/25 03:54 05/12/25 03:54 05/12/25 03:54 05/12/25 03:59 05/12/25 03:54
*Pulse Oximetry
Patient hypoxic: no (99% on room air)
*Critical Care Note
Total Time (30-74mins, 75-104mins- exclusive of procedures): Not Applicable
ED Attending Note
-
Portions of this chart may have been created with voice recognition software.� Occasional wrong word or��sound alike� substitutions may have occurred due to the inherent limitations of voice recognition software.
Discharge Plan
Departure
Patient Disposition: Home (Routine Discharge)
Date of Disposition: 05/12/25
Time of Disposition: 05:53
Patient with high blood pressure during this ER visit?: Yes
Discharge Problem:
Medication reaction, Cannabis use disorder
Instructions: BLOOD PRESSURE
Prescriptions:
No Action
clonazepam 1 mg Tablet
1 mg PO HSPRN PRN (Reason: anxiety)
Patient Comments:
11/11/24: last filled 11/02/24 for 30 tabs over 30 days
levetiracetam 500 MG tablet
500 mg PO BID Qty: 30 0RF
quetiapine [Seroquel] 300 mg Tablet
300 mg PO HS
ibuprofen 800 mg Tablet
800 mg PO DAILYPRN PRN (Reason: mild pain)
quetiapine [Seroquel] 100 mg Tablet
100 mg PO BID
methimazole 5 mg Tablet
5 mg PO BID
propranolol 20 mg Tablet
20 mg PO TID
desvenlafaxine 50 mg tablet extended release 24 hr
50 mg PO DAILY
hydrochlorothiazide 25 mg tablet
25 mg PO BID
Referrals:
UNKNOWN - PT DOES,NOT KNOW [Family Provider]
Activity Restrictions/Additional Instructions:
Thank You for choosing [facility].
It was a pleasure meeting you and taking part in your care. We hope for your continued healing and wellness.
Please read discharge instructions in their entirety. However, they are for general education and may not describe your exact diagnosis at discharge. Information on your ER visit and medical conditions were discussed with you along with appropriate
follow up information...
If indicated, please take your medications as instructed and indicated on discharge paperwork.
Please schedule a follow up appointment as directed. Call to schedule an appointment
Please return to the emergency department with ANY change in, persisting, or worsening of symptoms. If any of your symptoms do not improve, or persist, or become more severe within 6-12 hours, please return to the emergency department for further
care.
Please return to the emergency department if you develop a headache, neck pain/stiffness, fever greater than 100.4F, chest pain, shortness of breath, persistent nausea, vomiting, slurred speech, difficulty walking, numbness/tingling, weakness, signs
of infection or any other symptoms that are worrisome to you.
If you have any questions or concerns please do not hesitate to call the Hospital at
Interventions
Interventions:
*Risk Screen - Suicide Last Done: 05/12/25 03:54
*Nursing Disposition Last Done: 05/12/25 06:03
ED- Cardiac Assessment Last Done: 05/12/25 04:00
ED- Pulmonary Assessment Last Done: 05/12/25 04:00
Discharge Date and Time
Discharge Date/Time: 05/12/25 06:05
Print Language: TURKISH
== END 2025-05-12 06:05 | disposition home or self-care (01) ==
LOC: EMR 03:49
PROVIDERS: EMERGENCY PHYSICIAN Student in an Organized Health Care Education/Training Program
DX: R20.2 Paresthesia of skin (principal); R00.0 Tachycardia, unspecified; T40.715A Adverse effect of cannabis, initial encounter; F12.10 Cannabis abuse, uncomplicated; Z53.29 Procedure and treatment not carried out because of patient's decision for other reasons; F17.200 Nicotine dependence, unspecified, uncomplicated; I10 Essential (primary) hypertension
CPT/HCPCS: 99283; 93005